=== PATIENT | male | born 1955 | race Caucasian/White ===

== ENCOUNTER 2022-07-20 07:24 | Emergency (ER) | payer OTHER ==
[~2022-07-20] VITALS: Ht 172.7 cm; Wt 102.5 kg
[2022-07-20] MEDS ORDERED: ADULT LOW DOSE81 M1 PO (07:54)
[2022-07-20] MEDS ORDERED: TOPROL XL25 MG PO (07:54)
== END 2022-07-20 11:34 | disposition home or self-care (01) ==
LOC: ER 07:24
DX: J06.9 Acute upper respiratory infection, unspecified (principal); Z20.822 Contact with and (suspected) exposure to COVID-19